=== PATIENT | female | born 1995 | race African-American/Black ===

== ENCOUNTER 2020-06-05 07:39 | Inpatient (IN) ==
[2020-06-05] MEDS ORDERED: OXYTOCIN 30 UNITS/500 ML BAG IV PRN ×2 (07:45)
--- NOTE | 2020-06-05 08:06 | History & Physical Report ---
Date of Service June 05, 2020 Assessment & Plan (1) Encounter for induction of labor: Induction of labor - benign course, reassuring T - [facility] peds aware of ECHO finding 02/2020 "aneurysm foramen ovale" cardiac abnormality, ok to deliver plan: induction of labor via Pitocin. epidural. - needs Pap at visit Admission and Anticipated Discharge Date Admission Date: June 05, 2020 History of Present Illness Primary Care Provider: NO PCP dr. ricardo rocha hasn't seen yet dr ignacio is her pcp. Darlyn Monte is a 24 y/o healthy female currently at 41 WGA with an LIGIA 05/28/20 as determined by (ultrasound) who is here for (induction). Her was complicated by cardiac abnormality on ECHO ("aneurysm of foramen ovale"), but no other problems. She had bloody show yesterday. Feels baby kicking regularly. + contractions; + movement; - fluid loss; +bloody show. 04/26/20 mucous plug fell out, was evaluated, did not enter labor at the time. Has had regular appointments with OB. 01/19 intermittent cramping pain butt and groin started yesterday, still has today. Denies painful contractions prior to yesterday. +urinary frequency. No dysuria or urgency. No back/kidney pain. Denies headache dizziness, vision changes, or nausea. No cough, chest pain, calf tenderness. Last bowel movement this AM, +diarrhea. Denies recent illness, infections. Denies hx of STIs. No hx of HTN or diabetes. Failed 1hr GTT (134) at 28 weeks, but passed subsequent 2 hr GTT on 03/21/20. Neg covid test 05/31/20. Has not traveled out of state last month. No sick contact. Per patient, minor fall x1 a few weeks ago, was cleared by OB. Baby name: Alonzo (middle name Lino). Patient would like circumcision for baby. Plans to breastfeed and has pump. Labs: (11/24/19) Blood type: O+ Antibody screen: negative H.1 (today) Hct: 37.6 (today) WBC: 13.22H (today) Plt: 279 (today) Rubella: immune RPR: Gonorrhea: negative Chlamydia: negative HIV: nonreactive HbSAg: negative GBS: negative 03/08/20 GTT (1hr): 134H 03/21/20 GTT (2hr): 118 03/16/20 UA had trace leuk esterase, >30 epithelial cells, 2+ bacteria. Other screens: negative quad screen cystic fibrosis: negative tdap UTD Allergies Allergy/AdvReac Type Severity Reaction Status Date / Time No Known Drug Allergies Allergy Unknown Verified 06/05/20 07:47 Home Medications Home Medications Medication Instructions Recorded Confirmed Type prenat.vits,joanna,qce-[id number] 1 tab PO DAILY 03/12/20 06/05/20 History Patient History Surgical History S/P wisdom tooth extraction Family History Father Crohn's disease Grandfather (Paternal) Diabetes Mother Hypertension Social History (Updated 06/05/20 @ 08:59 by Raymundo Epstein MD) Smoking Status: Former smoker Hx Alcohol Use: No Hx Substance Use: No Preferred Language: Sudanese Communication Ability: Effective Rn Travel Required: No Beliefs That Will Affect Care: None marital status: Single marital status details: FOB: Lino Gardner (23) [phone] Current Living Situation: Significant Other Current Living Situation Comment: apartment with FOB current occupational status: employed and unemployed Other Information That Helps Us Care for You: No other: Moved from [place] on 02/17/20. Feels Safe at Home: Yes Safety Concerns: Feels Safe At This Time Review of Systems Denies fever, chills Denies shortness of breath, difficulty breathing, chest pain, palpitations Denies dysuria. Denies headache or changes in vision. Denies nausea/vomiting. Denies numbness, tingling, weakness. Physical Exam Physical Exam: General: Alert, oriented. No acute distress. Cardiac: Regular rate and rhythm, no murmurs/rubs/gallops. Respiratory: Clear to auscultation bilaterally, no wheezes/rales/rhonchi. No increased work of breathing. Symmetrical chest rise. No respiratory distress. Abdomen: Gravid; + FHTs; Position: See attending exam. Pelvic: Dilation 4cm; Effacement 90%; Station -3. Posterior. Soft. EFW 7-8. Per Dr. Ignacio. Lower Extremities: No lower extremity edema or swelling. No deep calf pain. Gage's negative bilaterally. Results & Data ([facility]) Vital Signs (Past 12 Hours) Vital Signs Temp Pulse Resp BP 06/05/20 07:53 37.0 C 20 06/05/20 07:46 96 H 122/76 Laboratory Results +1 protein. 250 glucose in urine dip this AM Monitoring External Monitor External FHT and external uterine monitors used; Category I tracing; 130bmp FHT moderate variability. + accelerations. No decelerations. Contractions 2-7 minutes apart. Supervising Physician Co-Signing Physician Notes Resident Physician Supervision Note: I interviewed and examined the patient. Discussed with Dr. Epstein and agree with findings and plan as documented in the note. Any exceptions or clarifications are listed here: 24yo @ 41 10/18, IOL. Aneurysm of foramen ovale - peds review of chart, ok to deliver at [facility]. Documented By: Alexandria Ignacio, DO Resident Activity Tracking Resident Involvement: Resident Care Provided Care Provided: Adult Hospital Medicine
[2020-06-05 08:21] LABS: Hematocrit (blood only) 37.6 % (37-47); Hemoglobin 12.1 g/dL (12.0-16.0); Mean Corpuscular Hemoglobin 26.4 pg (25-34); Mean Corpuscular Volume 82.1 fL (80-100); Mean Platelet Volume 9.9 fL (7.4-10.4); Platelet Count 279 K/uL (130-400); RDW Coefficient of Variation 14.8 % (11.5-14.5); RDW Standard Deviation 43.5 fL (36.4-46.3); Red Blood Count 4.58 M/uL (4.2-5.4); White Blood Count 13.22 K/uL (4.8-10.8)
[2020-06-05 08:48] LABS: Mean Corpuscular Hgb Conc 32.2 g/dL (32-36)
[2020-06-05] MEDS: LACTATED RINGER'S 1,000 ML IV PRN ×3 (08:49→15:45)
[2020-06-05] MEDS ORDERED: ePHEDrine sulfate 50 MG/ML AMP ONE (09:25)
[2020-06-05] MEDS ORDERED: fentaNYL citrate 100 MCG/2 ML VIAL ONE (09:26)
[2020-06-05] MEDS ORDERED: fentaNYL 2MCG/ML ROPIV 1.25MG/ML 100 ML BAG EPI ONE (09:26)
[2020-06-05] MEDS ORDERED: BUPIVACAINE 0.25% 30 ML VIAL ONE ×2 (09:26→23:02)
[2020-06-05] MEDS ORDERED: NALOXONE HCL 0.4 MG/1 ML VIAL/CARP IV PRN (09:57)
[2020-06-05] MEDS ORDERED: NALOXONE HCL 1 MG in SODIUM CHLORIDE 0.9% 1000ML 1,000 ML IV PRN (09:57)
[2020-06-05] MEDS ORDERED: DiphenhydrAMINE HCL 50 MG/ML VIAL IV PRN (09:57)
[2020-06-05] MEDS ORDERED: ONDANSETRON INJ 2 MG/ML 2 ML VIAL IV PRN (09:57)
[2020-06-05] MEDS ORDERED: ePHEDrine sulfate 50 MG/ML AMP IV PRN (09:57)
[2020-06-05] MEDS ORDERED: PROMETHAZINE HCL 6.25 MG in SODIUM CHLORIDE 0.9% 50 ML IV PRN (09:57)
--- NOTE | 2020-06-05 09:57 | Anesthesiology Consultation ---
Date of Service June 05, 2020 Assessment & Plan (1) Encounter for pre-operative examination: Chart Review Chart Review: Patient NOT seen in Pre Admission Testing and Acceptable Risk for Labor Epidural Consults Requested none ASA ASA2 Proposed Anesthesia Anesthesia Type: Labor Epidural Risk / Benefits Reviewed With: PT / POA / Parent / Guardian, Accepts Plan and Informed Consent Obtained History Height/Weight Height: 5 ft 4 in Weight: 100.698 kg Allergies Allergy/AdvReac Type Severity Reaction Status Date / Time No Known Drug Allergies Allergy Unknown Verified 06/05/20 07:47 Medications Home Medications Medication Instructions Recorded Confirmed Last Taken prenat.vits,joanna,urd-kzzn-[id number] 1 tab PO DAILY 03/12/20 06/05/20 06/04/20 Active Medications Generic Name Dose Route Start Last Admin Trade Name Freq PRN Reason Stop Dose Admin Lactated Ringer's 1,000 mls @ 125 mls/hr 06/05/20 07:45 06/05/20 09:20 Lr IV 06/07/20 07:44 999 mls/hr .Q8H PRN Infusion L&D Protocol Protocol Oxytocin 30 units in 500 mls @ 3 mls/hr 06/05/20 07:45 06/05/20 09:20 Pitocin IV 06/07/20 07:44 0.18 units/hr .Q24H PRN 3 mls/hr Labor Induction/Augmentation Titration Protocol 0.18 UNITS/HR NPO Date Last Intake of Fluids: 06/05/20 Time Last Intake of Fluids: 06:00 Date Last Intake of Solids: 06/05/20 Time Last Intake of Solids: 06:00 Exercise / Class Metabolic Activity II 4-5 Yardwork/Stairs/Walk up hill Past Family History Family History Father Crohn's disease Grandfather (Paternal) Diabetes Mother Hypertension Past Surgical History Surgical History S/P wisdom tooth extraction Past Anesthesia History No Hx of Anesthesia Complications and No Family Hx of Anesthesia Complications History of PONV No Hx of PONV and No Hx of Motion Sickness Social History Smoking Status: Former smoker Hx Alcohol Use: No Hx Substance Use: No substance use type: does not use Physical Exam Vital Signs Last Vital Signs Temp 37.0 C 06/05/20 07:53 Pulse 92 H 06/05/20 09:54 Resp 20 06/05/20 07:53 BP 138/78 06/05/20 09:54 Pulse Ox 98 06/05/20 09:53 ENMT Mouth: no dentition abnormality Thyromental Distance: > or= 3.5 Finger Breadths Mallampati Class: II Neck normal visual inspection Respiratory normal respiratory effort Auscultation: lungs clear to auscultation bilaterally Cardiovascular Rate/Rhythm: regular rate and regular rhythm Psychiatric Orientation: alert Testing Laboratory Results 06/05/20 08:09 06/05/20 08:53 POC Glucose 85
--- NOTE | 2020-06-05 12:38 | Labor Progress Brief Note ---
Date of Service June 05, 2020 Subjective Comfortable with epidural. FHT Cat 1 [place] Q 2 SVE 5/100/-2, bulging membranes AROM clear fluid. Continue pitocin. Assessment & Plan Admission and Anticipated Discharge Date Admission Date: June 05, 2020 Results & Data ([facility]) Vital Signs (Past 12 Hours) Vital Signs Temp Pulse Resp BP Pulse Ox 06/05/20 12:35 66 138/76 06/05/20 12:33 81 98 06/05/20 12:28 76 97 06/05/20 12:23 83 97 06/05/20 12:20 73 115/72 06/05/20 12:18 86 97 06/05/20 12:13 84 96 06/05/20 12:08 91 H 98 06/05/20 12:04 86 118/75 06/05/20 12:03 87 98 06/05/20 11:58 83 95 06/05/20 11:53 96 H 96 06/05/20 11:49 99 H 126/74 06/05/20 11:48 73 96 06/05/20 11:43 71 96 06/05/20 11:38 81 96 06/05/20 11:34 80 126/70 06/05/20 11:33 74 96 06/05/20 11:28 80 96 06/05/20 11:23 74 96 06/05/20 11:20 77 129/71 06/05/20 11:18 92 H 97 06/05/20 11:13 81 95 06/05/20 11:09 100 H 94 06/05/20 11:08 102 H 94 06/05/20 11:03 104 H 109/67 97 06/05/20 10:58 95 H 98 06/05/20 10:53 98 H 96 06/05/20 10:49 90 102/57 L 06/05/20 10:48 88 97 06/05/20 10:43 103 H 98 06/05/20 10:38 85 97 06/05/20 10:34 79 142/63 H 06/05/20 10:33 86 98 06/05/20 10:28 98 H 97 06/05/20 10:23 88 99 06/05/20 10:18 78 97 06/05/20 10:17 85 118/69 06/05/20 10:13 81 98 06/05/20 10:12 81 138/92 06/05/20 10:08 85 24 138/75 98 06/05/20 10:05 81 24 130/59 L 06/05/20 10:03 74 133/67 98 06/05/20 10:00 80 133/70 06/05/20 09:58 76 20 133/69 97 06/05/20 09:56 78 139/73 06/05/20 09:54 37.1 C 92 H 18 138/78 06/05/20 09:53 82 98 06/05/20 09:52 76 138/82 06/05/20 09:51 71 146/68 H 06/05/20 09:49 89 140/73 97 06/05/20 09:43 95 H 97 06/05/20 09:42 94 H 94 06/05/20 09:38 108 H 98 06/05/20 09:34 87 111/68 06/05/20 09:33 98 H 99 06/05/20 08:55 93 H 111/73 06/05/20 07:53 37.0 C 20 06/05/20 07:46 96 H 122/76 Coding Level of Care Code None
[2020-06-05] MEDS: fentaNYL 2MCG/ML ROPIV 1.25MG/ML 100 ML BAG EPI PRN ×2 (16:52→22:40)
--- NOTE | 2020-06-05 19:22 | Labor Progress Brief Note ---
Date of Service June 05, 2020 Subjective Comfortable with epidural. FHT Cat 1 [place] Q2, however not adequate [place] units with IUPC. Cervix unchanged, still 5-6cm, 100% effaced. Will give patient pitocin holiday, then restart again in 2 hours, in the hopes of progressing into active labor. Discussed this with patient, she is agreeable. Assessment & Plan Admission and Anticipated Discharge Date Admission Date: June 05, 2020 Results & Data ([facility]) Vital Signs (Past 12 Hours) Vital Signs Temp Pulse Resp BP Pulse Ox 06/05/20 19:18 74 97 06/05/20 19:13 95 H 97 06/05/20 19:08 84 125/67 96 06/05/20 19:03 67 99 06/05/20 18:58 72 99 06/05/20 18:53 69 98 06/05/20 18:48 66 98 06/05/20 18:43 74 99 06/05/20 18:38 75 115/74 98 06/05/20 18:33 67 99 06/05/20 18:28 78 98 06/05/20 18:23 76 98 06/05/20 18:18 72 98 06/05/20 18:13 67 98 06/05/20 18:09 66 122/72 06/05/20 18:08 66 97 06/05/20 18:03 63 98 06/05/20 17:58 78 98 06/05/20 17:53 37.0 C 68 22 98 06/05/20 17:48 67 98 06/05/20 17:43 69 99 06/05/20 17:39 68 121/68 06/05/20 17:38 73 98 06/05/20 17:33 69 99 06/05/20 17:28 74 98 06/05/20 17:23 73 98 06/05/20 17:18 72 98 06/05/20 17:13 70 99 06/05/20 17:08 70 98 06/05/20 17:03 68 98 06/05/20 16:58 75 98 06/05/20 16:53 71 98 06/05/20 16:48 72 98 06/05/20 16:43 74 98 06/05/20 16:38 74 125/72 98 06/05/20 16:33 72 98 06/05/20 16:28 66 98 08/25/20 16:23 65 98 06/05/20 16:18 68 99 06/05/20 16:13 85 98 06/05/20 16:09 73 131/79 06/05/20 16:08 65 98 06/05/20 16:03 69 98 06/05/20 15:58 69 98 06/05/20 15:53 65 99 06/05/20 15:48 67 99 06/05/20 15:43 73 98 06/05/20 15:38 72 99 06/05/20 15:36 36.9 C 62 24 129/69 06/05/20 15:34 177/121 H 06/05/20 15:33 71 98 06/05/20 15:28 78 99 06/05/20 15:23 74 99 06/05/20 15:19 71 127/80 06/05/20 15:18 72 99 06/05/20 15:13 67 98 06/05/20 15:08 79 98 06/05/20 15:03 63 121/73 97 06/05/20 14:58 62 98 06/05/20 14:53 69 100 06/05/20 14:49 76 120/73 06/05/20 14:48 75 98 06/05/20 14:43 73 97 06/05/20 14:38 76 97 06/05/20 14:33 74 121/74 96 06/05/20 14:28 69 97 06/05/20 14:23 71 97 06/05/20 14:18 63 119/67 97 06/05/20 14:13 70 96 06/05/20 14:08 60 97 06/05/20 14:03 84 121/74 98 06/05/20 13:58 70 97 06/05/20 13:53 74 96 06/05/20 13:48 81 119/77 97 06/05/20 13:43 77 97 06/05/20 13:38 72 97 06/05/20 13:33 78 119/71 98 06/05/20 13:28 68 97 06/05/20 13:23 65 98 06/05/20 13:20 73 121/70 06/05/20 13:18 72 98 06/05/20 13:13 72 97 06/05/20 13:08 74 97 06/05/20 13:04 72 110/72 06/05/20 13:03 70 98 06/05/20 12:58 86 97 06/05/20 12:53 71 98 06/05/20 12:49 74 133/78 06/05/20 12:48 73 98 06/05/20 12:43 87 98 06/05/20 12:40 37.0 C 24 06/05/20 12:38 104 H 98 06/05/20 12:35 66 138/76 06/05/20 12:33 81 98 06/05/20 12:28 76 97 06/05/20 12:23 83 97 06/05/20 12:20 73 115/72 06/05/20 12:18 86 97 06/05/20 12:13 84 96 06/05/20 12:08 91 H 98 06/05/20 12:04 86 118/75 06/05/20 12:03 87 98 06/05/20 11:58 83 95 06/05/20 11:53 96 H 96 06/05/20 11:49 99 H 126/74 06/05/20 11:48 73 96 06/05/20 11:43 71 96 06/05/20 11:38 81 96 06/05/20 11:34 80 126/70 06/05/20 11:33 74 96 06/05/20 11:28 80 96 06/05/20 11:23 74 96 06/05/20 11:20 77 129/71 06/05/20 11:18 92 H 97 06/05/20 11:13 81 95 06/05/20 11:09 100 H 94 06/05/20 11:08 102 H 94 06/05/20 11:03 104 H 109/67 97 06/05/20 10:58 95 H 98 06/05/20 10:53 98 H 96 06/05/20 10:49 90 102/57 L 06/05/20 10:48 88 97 06/05/20 10:43 103 H 98 06/05/20 10:38 85 97 06/05/20 10:34 79 142/63 H 06/05/20 10:33 86 98 06/05/20 10:28 98 H 97 06/05/20 10:23 88 99 06/05/20 10:18 78 97 06/05/20 10:17 85 118/69 06/05/20 10:13 81 98 06/05/20 10:12 81 138/92 06/05/20 10:08 85 24 138/75 98 06/05/20 10:05 81 24 130/59 L 06/05/20 10:03 74 133/67 98 06/05/20 10:00 80 133/70 06/05/20 09:58 76 20 133/69 97 06/05/20 09:56 78 139/73 06/05/20 09:54 37.1 C 92 H 18 138/78 06/05/20 09:53 82 98 06/05/20 09:52 76 138/82 06/05/20 09:51 71 146/68 H 06/05/20 09:49 89 140/73 97 06/05/20 09:43 95 H 97 06/05/20 09:42 94 H 94 06/05/20 09:38 108 H 98 06/05/20 09:34 87 111/68 06/05/20 09:33 98 H 99 06/05/20 08:55 93 H 111/73 06/05/20 07:53 37.0 C 20 06/05/20 07:46 96 H 122/76 Coding Level of Care Code None
--- NOTE | 2020-06-05 23:44 | Labor Progress Brief Note ---
Date of Service June 05, 2020 Subjective Feeling more pressure with ctx. SVE 7/100/0 to +1, FHT Cat 1 [place] Q 2, MVU 150 Since patient is making cervical change, will continue pitocin. Will ask anesthesia to redose epidural. Assessment & Plan Admission and Anticipated Discharge Date Admission Date: June 05, 2020 Results & Data ([facility]) Vital Signs (Past 12 Hours) Vital Signs Temp Pulse Resp BP Pulse Ox 06/05/20 23:38 78 98 06/05/20 23:33 77 124/67 98 06/05/20 23:28 73 98 06/05/20 23:23 68 97 06/05/20 23:18 75 120/67 98 06/05/20 23:13 75 97 06/05/20 23:08 72 98 06/05/20 23:04 75 122/64 06/05/20 23:03 76 98 06/05/20 23:00 37.4 C 18 06/05/20 22:58 82 98 06/05/20 22:53 95 H 98 06/05/20 22:48 76 126/65 99 06/05/20 22:43 86 97 06/05/20 22:38 82 98 06/05/20 22:33 85 133/82 98 06/05/20 22:28 92 H 98 06/05/20 22:23 74 99 06/05/20 22:18 72 132/72 100 06/05/20 22:13 75 100 06/05/20 22:08 70 100 06/05/20 22:05 67 133/74 06/05/20 22:03 69 99 06/05/20 21:58 73 99 06/05/20 21:53 69 99 06/05/20 21:48 67 127/72 100 06/05/20 21:43 68 99 06/05/20 21:38 66 99 06/05/20 21:34 67 128/69 06/05/20 21:33 66 99 06/05/20 21:30 18 06/05/20 21:28 68 99 06/05/20 21:23 70 99 06/05/20 21:18 72 99 06/05/20 21:13 83 99 06/05/20 21:08 75 132/67 97 06/05/20 21:03 74 98 08/25/20 21:00 36.8 C 18 25/20 20:58 74 99 08/25/20 20:53 66 98 /25/20 20:48 82 98 25/20 20:43 73 98 25/20 20:38 72 131/76 99 25/20 20:33 79 99 25/20 20:30 20 0825/20 20:28 86 98 25/20 20:23 70 98 25/20 20:18 75 97 25/20 20:13 68 97 08/25/20 20:08 66 123/68 98 25/20 20:03 71 97 /25/20 19:58 72 97 25/20 19:53 82 98 25/20 19:48 72 97 25/20 19:43 69 97 25/20 19:38 68 122/66 97 25/20 19:33 74 98 25/20 19:28 62 98 25/20 19:23 70 97 25/20 19:18 74 97 25/20 19:13 95 H 97 25/20 19:08 84 125/67 96 25/20 19:03 67 99 25/20 19:00 36.7 C 18 20 18:58 72 99 25/20 18:53 69 98 25/20 18:48 66 98 25/20 18:43 74 99 25/20 18:38 75 115/74 98 25/20 18:33 67 99 25/20 18:28 78 98 25/20 18:23 76 98 25/20 18:18 72 98 /25/20 18:13 67 98 /25/20 18:09 66 122/72 0825/20 18:08 66 97 25/20 18:03 63 98 /25/20 17:58 78 98 /25/20 17:53 37.0 C 68 22 98 25/20 17:48 67 98 /25/20 17:43 69 99 08/25/20 17:39 68 121/68 0825/20 17:38 73 98 /25/20 17:33 69 99 /25/20 17:28 74 98 08/25/20 17:23 73 98 06/05/20 17:18 72 98 06/05/20 17:13 70 99 06/05/20 17:08 70 98 06/05/20 17:03 68 98 06/05/20 16:58 75 98 06/05/20 16:53 71 98 06/05/20 16:48 72 98 06/05/20 16:43 74 98 06/05/20 16:38 74 125/72 98 06/05/20 16:33 72 98 06/05/20 16:28 66 98 06/05/20 16:23 65 98 06/05/20 16:18 68 99 06/05/20 16:13 85 98 06/05/20 16:09 73 131/79 06/05/20 16:08 65 98 06/05/20 16:03 69 98 06/05/20 15:58 69 98 06/05/20 15:53 65 99 06/05/20 15:48 67 99 06/05/20 15:43 73 98 06/05/20 15:38 72 99 06/05/20 15:36 36.9 C 62 24 129/69 06/05/20 15:34 177/121 H 06/05/20 15:33 71 98 06/05/20 15:28 78 99 06/05/20 15:23 74 99 06/05/20 15:19 71 127/80 06/05/20 15:18 72 99 06/05/20 15:13 67 98 06/05/20 15:08 79 98 06/05/20 15:03 63 121/73 97 06/05/20 14:58 62 98 06/05/20 14:53 69 100 06/05/20 14:49 76 120/73 06/05/20 14:48 75 98 06/05/20 14:43 73 97 06/05/20 14:38 76 97 06/05/20 14:33 74 121/74 96 06/05/20 14:28 69 97 06/05/20 14:23 71 97 06/05/20 14:18 63 119/67 97 06/05/20 14:13 70 96 06/05/20 14:08 60 97 06/05/20 14:03 84 121/74 98 06/05/20 13:58 70 97 06/05/20 13:53 74 96 06/05/20 13:48 81 119/77 97 06/05/20 13:43 77 97 06/05/20 13:38 72 97 06/05/20 13:33 78 119/71 98 06/05/20 13:28 68 97 06/05/20 13:23 65 98 06/05/20 13:20 73 121/70 06/05/20 13:18 72 98 06/05/20 13:13 72 97 06/05/20 13:08 74 97 06/05/20 13:04 72 110/72 06/05/20 13:03 70 98 06/05/20 12:58 86 97 06/05/20 12:53 71 98 06/05/20 12:49 74 133/78 06/05/20 12:48 73 98 06/05/20 12:43 87 98 06/05/20 12:40 37.0 C 24 06/05/20 12:38 104 H 98 06/05/20 12:35 66 138/76 06/05/20 12:33 81 98 06/05/20 12:28 76 97 06/05/20 12:23 83 97 06/05/20 12:20 73 115/72 06/05/20 12:18 86 97 06/05/20 12:13 84 96 06/05/20 12:08 91 H 98 06/05/20 12:04 86 118/75 06/05/20 12:03 87 98 06/05/20 11:58 83 95 06/05/20 11:53 96 H 96 06/05/20 11:49 99 H 126/74 06/05/20 11:48 73 96 Coding Level of Care Code None
[2020-06-06] MEDS ORDERED: CITRIC ACID/SODIUM CITRATE 15 ML UDC PO ONE (02:00)
[2020-06-06] MEDS ORDERED: CEFAZOLIN 3000MG 65 ML IV ONE (02:00)
--- NOTE | 2020-06-06 02:02 | History & Physical Bridge Note ---
Date of Service June 06, 2020 History & Physical Bridge Note I have examined the patient, reviewed the History & Physical and in the interval since the performance of the History & Physical I have noted the following changes of clinical significance: Patient is comfortable with epidural. However, FHT have become Cat 3, with no response to resuscitative measures. Cervix is 7-8cm/100/0 station. Cervix has been making only minimal change, therefore I believe delivery is remote. Recommend proceed to delivery at this time, and recommend section. Reviewed informed consent, questions answered.
[2020-06-06] MEDS ORDERED: LACTATED RINGER'S 500 ML IV PRN (02:03)
[2020-06-06] MEDS ORDERED: MEPERIDINE HCL 25 MG/ML CARP/VIAL IV PRN (02:03)
[2020-06-06] MEDS ORDERED: DiphenhydrAMINE HCL 50 MG/ML VIAL IV PRN ×2 (02:03→20:04)
[2020-06-06] MEDS ORDERED: MoRPHine SULFATE 2 MG/ML CARP IV PRN (02:03)
[2020-06-06] MEDS ORDERED: PROMETHAZINE HCL 6.25 MG in SODIUM CHLORIDE 0.9% 50 ML IV PRN (02:03)
[2020-06-06] MEDS ORDERED: ONDANSETRON INJ 2 MG/ML 2 ML VIAL IV PRN ×2 (02:03→20:04)
[2020-06-06] MEDS ORDERED: ePHEDrine sulfate 50 MG/ML AMP IV PRN (02:03)
[2020-06-06] MEDS ORDERED: HYDROmorphone INJ 0.5 MG/0.5 ML SYR IV PRN (02:03)
[2020-06-06] MEDS ORDERED: NALOXONE HCL 0.08 MG in SYRINGE 1.8 ML IV PRN (02:03)
[2020-06-06] MEDS ORDERED: NALOXONE HCL 1 MG in SODIUM CHLORIDE 0.9% 1000ML 1,000 ML IV PRN (02:03)
[2020-06-06] MEDS ORDERED: MoRPHine SULFATE PF 1 MG/ML 10 ML AMP/VIAL INT SPINAL ONE (02:03)
[2020-06-06] MEDS ORDERED: NALOXONE HCL 0.4 MG/1 ML VIAL/CARP IV PRN (02:03)
[2020-06-06] MEDS ORDERED: DC INTRASPINAL MORPHINE SCH (02:15)
[2020-06-06] MEDS ORDERED: NO NARCOTICS OR SEDATIVES SCH (02:15)
[2020-06-06] MEDS ORDERED: SODIUM CHLORIDE 0.9% 1000ML 1,000 ML IV SCH (02:15)
[2020-06-06] MEDS ORDERED: MoRPHine SULFATE PF 1 MG/ML 10 ML AMP/VIAL ONE (02:46)
[2020-06-06] MEDS ORDERED: fentaNYL citrate 100 MCG/2 ML VIAL ONE (02:46)
[2020-06-06] MEDS ORDERED: KETOROLAC 30 MG/ML VIAL ONE (02:56)
[2020-06-06] MEDS ORDERED: CARBOPROST TROMETHAMINE 250 MCG/ML AMPUL ONE (02:56)
[2020-06-06] MEDS ORDERED: METHYLERGONOVINE MALEATE 0.2 MG/ML AMP ONE (02:56)
[2020-06-06] MEDS ORDERED: OXYTOCIN 10 UNITS/ML VIAL ONE (02:56)
--- NOTE | 2020-06-06 03:42 | Operative Report ---
PG Post Operative Report Pre & Post Diagnosis Operation Date: 06/06/20 01:40 Pre-Op Diagnosis: Postdates induction of labor, Category 3 Heart Tracing Post-Op Diagnosis: same I identified the patient and participated in the time-out.: Yes Procedure Operation Date: 06/06/20 01:40 Actual Procedures p Primary Low Transverse Section in LD(Bilateral) - Alexandria Ignacio DO Surgeon Alexandria Ignacio DO Branch Manager Bertrand Selby RN Estimated Blood Loss 600 Findings Consistent with Post-Op Diagnosis Viable male , Apgars 9/9, Weight 8#13. Normal appearing uterus, tubes, ovaries. Specimens placenta, cord blood, cord gas. Drains monsalve clear yellow Anesthesia Type L&D Only Epidural Exists Complications none Disposition Accompanied Patient To Recovery: Yes Disposition: L&D Indications 24yo @ 41 1/, IOL for postdates, persistent category 3 FHT. Description of Procedure The patient was seen in her labor room, where risks benefits and alternatives to surgery were reviewed. She elected to proceed with the case. She signed informed consent. Questions were answered. She was taken to the operating room, epidural was redosed. She was then prepared and draped in the usual sterile fashion in the supine position with a leftward tilt. Timeout was confirmed. She had been given Ancef 3 g. The skin incision was made with scalpel, Pfannenstiel. This was carried through to the underlying layer of fascia. This was nicked at midline, and the incision was extended bilaterally. The superior aspect of the fascial incision was grasped with Augie clamps x2, elevated off the underlying rectus abdominis muscles and dissected. The inferior aspect of the incision was dissected in a similar fashion. The rectus abdominis muscles were entered, and this was bluntly. Peritoneum was entered bluntly digitally. The bladder flap was taken down sharply. A new scalpel was used to make a low transverse uterine incision. The was delivered from a cephalic presentation, no nuchal cord. Spontaneous cry on the field. The cord was doubly clamped and cut, the baby was handed off to waiting recreation facility attendant. A cord segment was retained for cord gases. Cord blood was obtained. The placenta was delivered spontaneously intact. The uterus was exteriorized, and cleared of clots and debris. The hysterotomy was reapproximated using 0 Vicryl in a running locked stitch. A second layer of the same suture was used to imbricate the incision. Posterior uterus was evaluated and normal. Pitocin was given IV, and uterus remained atonic. Methergine was given IM by anesthesia, and hemabate was injected into the uterine muscle. The lower uterine segment was still very boggy, even after uterine massage. Excellent hemostasis, but since the uterine tone was poor, B- Scott suture was performed. This decision was made to prevent the atonic uterus from potentially causing a hemorrhage. 0-PDS was used to perform the B-Scott, with a stitch through the hysterotomy at its left side, over the fundus, then across posterior side, then over fundus again, and another stitch through hysterotomy. This was cynched down on the uterus, which significantly improved uterine tone and uterus began to wyatt. The uterus was returned to the abdomen, excellent hemostasis observed. Gutters were cleared of clots and debris. Excellent hemostasis was observed again. The fascial incision was reapproximated using 0 Vicryl in a running stitch. The subcutaneous tissue was irrigated, reapproximated with using 2-0 plain gut. The skin was reapproximated using 4-0 Vicryl in a subcuticular stitch. Steri strips and bandage applied. Instrument, sponge, needle counts were correct at the conclusion of the case. The patient tolerated the procedure well and was taken to her labor room to recover in stable condition. I attest to the content of the Intraoperative Record and any orders documented therein. Any exceptions are noted below.
[2020-06-06] MEDS ORDERED: SENNA 8.6 MG TAB PO PRN (03:47)
[2020-06-06] MEDS ORDERED: SUPERCREAM 0.870% 15 GM JAR EXT PRN (03:47)
[2020-06-06] MEDS ORDERED: BENZOCAINE 20% AER SPR 82.5 GM CAN EXT PRN (03:47)
[2020-06-06] MEDS ORDERED: MAGNESIUM HYDROXIDE SUSP 30 ML UDC PO PRN (03:47)
[2020-06-06] MEDS ORDERED: DIPHTHERIA/TETANUS/PERTUSSIS 0.5 ML SYR/VIAL IM ONE (03:47)
[2020-06-06] MEDS ORDERED: HYDROCORTISONE ACETATE 25 MG SUPP PR PRN (03:47)
--- NOTE | 2020-06-06 03:47 | Anesthesiology Progress Note ---
Date of Service June 06, 2020 Anesthesia Post Procedure Vital Signs Vital Signs: Temp Pulse Resp BP Pulse Ox 06/06/20 03:44 90 124/58 L 06/06/20 03:43 97 H 100 06/06/20 02:04 98 H 135/72 06/06/20 01:53 103 H 97 06/06/20 01:48 98 H 127/73 97 06/06/20 01:43 107 H 97 06/06/20 01:38 89 97 06/06/20 01:33 102 H 114/56 L 97 06/06/20 01:28 88 96 06/06/20 01:23 83 97 06/06/20 01:18 86 120/60 98 06/06/20 01:13 91 H 97 06/06/20 01:08 88 98 06/06/20 01:03 81 120/59 L 98 06/06/20 01:00 37.0 C 18 06/06/20 00:58 96 H 98 06/06/20 00:53 93 H 97 06/06/20 00:48 94 H 120/56 L 98 06/06/20 00:43 76 98 06/06/20 00:38 91 H 98 06/06/20 00:34 105 H 123/71 06/06/20 00:33 106 H 99 06/06/20 00:28 79 98 06/06/20 00:23 112 H 98 06/06/20 00:18 107 H 118/67 97 06/06/20 00:13 80 97 06/06/20 00:08 92 H 98 06/06/20 00:03 83 118/67 97 06/05/20 23:58 81 97 06/05/20 23:53 75 98 06/05/20 23:48 80 122/66 98 06/05/20 23:43 78 98 06/05/20 23:38 78 98 06/05/20 23:33 77 124/67 98 06/05/20 23:30 18 06/05/20 23:28 73 98 06/05/20 23:23 68 97 06/05/20 23:18 75 120/67 98 06/05/20 23:13 75 97 06/05/20 23:08 72 98 06/05/20 23:04 75 122/64 06/05/20 23:03 76 98 08/25/20 23:00 37.4 C 18 08/25/20 22:58 82 98 08/25/20 22:53 95 H 98 08/25/20 22:48 76 126/65 99 08/25/20 22:43 86 97 08/25/20 22:38 82 98 08/25/20 22:33 85 133/82 98 08/25/20 22:28 92 H 98 25/20 22:23 74 99 08/25/20 22:18 72 132/72 100 08/25/20 22:13 75 100 08/25/20 22:08 70 100 08/25/20 22:05 67 133/74 08/25/20 22:03 69 99 08/25/20 21:58 73 99 08/25/20 21:53 69 99 08/25/20 21:48 67 127/72 100 08/25/20 21:43 68 99 08/25/20 21:38 66 99 /25/20 21:34 67 128/69 0825/20 21:33 66 99 /25/20 21:30 18 /25/20 21:28 68 99 08/25/20 21:23 70 99 08/25/20 21:18 72 99 08/25/20 21:13 83 99 08/25/20 21:08 75 132/67 97 25/20 21:03 74 98 08/25/20 21:00 36.8 C 18 25/20 20:58 74 99 08/25/20 20:53 66 98 08/25/20 20:48 82 98 08/25/20 20:43 73 98 08/25/20 20:38 72 131/76 99 08/25/20 20:33 79 99 08/25/20 20:30 20 08/25/20 20:28 86 98 08/25/20 20:23 70 98 08/25/20 20:18 75 97 08/25/20 20:13 68 97 08/25/20 20:08 66 123/68 98 08/25/20 20:03 71 97 08/25/20 19:58 72 97 08/25/20 19:53 82 98 08/25/20 19:48 72 97 08/25/20 19:43 69 97 08/25/20 19:38 68 122/66 97 08/25/20 19:33 74 98 25/20 19:28 62 98 25/20 19:23 70 97 06/05/20 19:18 74 97 06/05/20 19:13 95 H 97 06/05/20 19:08 84 125/67 96 25/20 19:03 67 99 25/20 19:00 36.7 C 18 06/05/20 18:58 72 99 06/05/20 18:53 69 98 06/05/20 18:48 66 98 25/20 18:43 74 99 06/05/20 18:38 75 115/74 98 25/20 18:33 67 99 06/05/20 18:28 78 98 20 18:23 76 98 20 18:18 72 98 06/05/20 18:13 67 98 20 18:09 66 122/72 25/20 18:08 66 97 20 18:03 63 98 20 17:58 78 98 20 17:53 37.0 C 68 22 98 06/05/20 17:48 67 98 06/05/20 17:43 69 99 06/05/20 17:39 68 121/68 06/05/20 17:38 73 98 20 17:33 69 99 06/05/20 17:28 74 98 06/05/20 17:23 73 98 06/05/20 17:18 72 98 06/05/20 17:13 70 99 06/05/20 17:08 70 98 20 17:03 68 98 06/05/20 16:58 75 98 25/20 16:53 71 98 25/20 16:48 72 98 25/20 16:43 74 98 25/20 16:38 74 125/72 98 25/20 16:33 72 98 25/20 16:28 66 98 25/20 16:23 65 98 25/20 16:18 68 99 25/20 16:13 85 98 25/20 16:09 73 131/79 25/20 16:08 65 98 25/20 16:03 69 98 08/25/20 15:58 69 98 06/05/20 15:53 65 99 06/05/20 15:48 67 99 06/05/20 15:43 73 98 06/05/20 15:38 72 99 06/05/20 15:36 36.9 C 62 24 129/69 06/05/20 15:34 177/121 H 06/05/20 15:33 71 98 06/05/20 15:28 78 99 06/05/20 15:23 74 99 06/05/20 15:19 71 127/80 06/05/20 15:18 72 99 06/05/20 15:13 67 98 06/05/20 15:08 79 98 06/05/20 15:03 63 121/73 97 06/05/20 14:58 62 98 06/05/20 14:53 69 100 06/05/20 14:49 76 120/73 06/05/20 14:48 75 98 06/05/20 14:43 73 97 06/05/20 14:38 76 97 06/05/20 14:33 74 121/74 96 06/05/20 14:28 69 97 06/05/20 14:23 71 97 06/05/20 14:18 63 119/67 97 06/05/20 14:13 70 96 06/05/20 14:08 60 97 06/05/20 14:03 84 121/74 98 06/05/20 13:58 70 97 06/05/20 13:53 74 96 06/05/20 13:48 81 119/77 97 06/05/20 13:43 77 97 06/05/20 13:38 72 97 06/05/20 13:33 78 119/71 98 06/05/20 13:28 68 97 06/05/20 13:23 65 98 06/05/20 13:20 73 121/70 06/05/20 13:18 72 98 06/05/20 13:13 72 97 06/05/20 13:08 74 97 06/05/20 13:04 72 110/72 06/05/20 13:03 70 98 06/05/20 12:58 86 97 06/05/20 12:53 71 98 06/05/20 12:49 74 133/78 06/05/20 12:48 73 98 06/05/20 12:43 87 98 06/05/20 12:40 37.0 C 24 06/05/20 12:38 104 H 98 06/05/20 12:35 66 138/76 06/05/20 12:33 81 98 06/05/20 12:28 76 97 06/05/20 12:23 83 97 06/05/20 12:20 73 115/72 06/05/20 12:18 86 97 06/05/20 12:13 84 96 06/05/20 12:08 91 H 98 06/05/20 12:04 86 118/75 06/05/20 12:03 87 98 06/05/20 11:58 83 95 06/05/20 11:53 96 H 96 06/05/20 11:49 99 H 126/74 06/05/20 11:48 73 96 06/05/20 11:43 71 96 06/05/20 11:38 81 96 06/05/20 11:34 80 126/70 06/05/20 11:33 74 96 06/05/20 11:28 80 96 06/05/20 11:23 74 96 06/05/20 11:20 77 129/71 06/05/20 11:18 92 H 97 06/05/20 11:13 81 95 06/05/20 11:09 100 H 94 06/05/20 11:08 102 H 94 06/05/20 11:03 104 H 109/67 97 06/05/20 10:58 95 H 98 06/05/20 10:53 98 H 96 06/05/20 10:49 90 102/57 L 06/05/20 10:48 88 97 06/05/20 10:43 103 H 98 06/05/20 10:38 85 97 06/05/20 10:34 79 142/63 H 06/05/20 10:33 86 98 06/05/20 10:28 98 H 97 06/05/20 10:23 88 99 06/05/20 10:18 78 97 06/05/20 10:17 85 118/69 06/05/20 10:13 81 98 06/05/20 10:12 81 138/92 06/05/20 10:08 85 24 138/75 98 06/05/20 10:05 81 24 130/59 L 06/05/20 10:03 74 133/67 98 08/25/20 10:00 80 133/70 06/05/20 09:58 76 20 133/69 97 06/05/20 09:56 78 139/73 06/05/20 09:54 37.1 C 92 H 18 138/78 06/05/20 09:53 82 98 06/05/20 09:52 76 138/82 06/05/20 09:51 71 146/68 H 06/05/20 09:49 89 140/73 97 06/05/20 09:43 95 H 97 06/05/20 09:42 94 H 94 06/05/20 09:38 108 H 98 06/05/20 09:34 87 111/68 06/05/20 09:33 98 H 99 06/05/20 08:55 93 H 111/73 06/05/20 07:53 37.0 C 20 06/05/20 07:46 96 H 122/76 Pain Intensity Lower Abdomen: Pain Intensity: 0 Transfer of Care Handoff Completed per policy Notes Mental Status: alert / awake / arousable Nausea / Vomiting: adequately controlled Pain: adequately controlled Airway Patency, RR, SpO2: stable & adequate BP & HR: stable & adequate Hydration State: stable & adequate Neuraxial Anesthesia: was administered and sensory block is resolving Anesthetic Complications: no major complications apparent
--- NOTE | 2020-06-06 03:48 | Anesthesia Procedure Note ---
Date of Service June 06, 2020 Anesthesia Post Epidural Note Vital Signs Vital Signs: Temp Pulse Resp BP Pulse Ox 37.0 C 90 18 124/58 L 100 06/06/20 01:00 06/06/20 03:44 06/06/20 01:00 06/06/20 03:44 06/06/20 03:43 Pain Intensity Lower Abdomen: Pain Intensity: 0 Notes Mental Status: alert / awake / arousable Nausea / Vomiting: adequately controlled Pain: adequately controlled Airway Patency, RR, SpO2: stable & adequate BP & HR: stable & adequate Hydration State: stable & adequate Neuraxial Anesthesia: was administered and sensory block is resolving Anesthetic Complications: no major complications apparent and Pt Satisfied with anesthetic care Epidural: Removed without complications and With tip intact
[2020-06-06 03:54] LABS: Base Excess Cord Arterial Bld -2.1 mEq/L (-9-1.8); Base Excess Cord Venous Blood -1.8 mEq/L (-7.7-1.9); CO2 Cord Arterial Blood 46 mmHg (39.1-73.5); Cord Venous Blood HCO3 23 mmol/L (18.4-26.8); Cord Venous Blood PCO2 41 mmHg (30.4-57.2); Cord Venous Blood PO2 24 mmHg (14.1-43.3); Cord Venous Blood pH 7.37 (7.20-7.44); HCO3 Cord Arterial Blood 24 mmol/L (19.7-28.5); PO2 Cord Arterial Blood 21 mmHg (4.1-31.7); pH Cord Arterial Blood 7.34 (7.1-7.38)
[2020-06-06 03:55] LABS: O2 Saturation Cord Venous Bld < 60.0 % (<68); Oxygen Sat Cord Arterial Blood < 60.0 % (<60)
[2020-06-06] MEDS: OXYTOCIN 30 UNITS in LACTATED RINGER'S 1,000 ML IV SCH ×2 (04:40→14:30)
[2020-06-06] MEDS: PRENATAL VITAMIN 1 TAB PO SCH (08:45)
[2020-06-06] MEDS: SIMETHICONE 80 MG CHEW PO SCH ×4 (08:45→21:11)
[2020-06-06] MEDS: DOCUSATE SODIUM 100 MG CAP PO SCH ×2 (08:45→21:11)
[2020-06-06] MEDS: FERROUS SULFATE 325 MG TAB PO SCH (08:45)
[2020-06-06] MEDS: KETOROLAC 30 MG/ML VIAL IV PRN ×2 (11:36→19:18)
[2020-06-06] MEDS ORDERED: LACTATED RINGER'S 500 ML IV ONE (14:52)
[2020-06-06] MEDS ORDERED: LACTATED RINGER'S 1,000 ML IV SCH (20:00)
[2020-06-06] MEDS ORDERED: PROMETHAZINE HCL 25 MG in SODIUM CHLORIDE 0.9% 50 ML IV PRN (20:04)
[2020-06-06] MEDS ORDERED: KETOROLAC 30 MG/ML VIAL IV PRN (20:04)
[2020-06-06] MEDS: OXYCODONE/ACETAMINOPHEN 5mg/325mg TAB PO PRN (23:39)
[2020-06-06] MEDS: IBUPROFEN 600 MG TAB PO PRN (23:40)
[2020-06-07] MEDS: OXYCODONE/ACETAMINOPHEN 5mg/325mg TAB PO PRN ×5 (05:32→21:18)
[2020-06-07] MEDS: IBUPROFEN 600 MG TAB PO PRN ×5 (05:33→21:17)
--- NOTE | 2020-06-07 06:29 | Obstetrical Progress Note ---
Date of Service <Raymundo Epstein MD - Last Filed: 06/07/20 07:01> June 07, 2020 Assessment & Plan <Raymundo Epstein MD - Last Filed: 06/07/20 07:01> (1) state: POD1 primary LTCS pending cbc vitals reviewed pain control inadequate, add toradol nursing counseling Subjective <Raymundo Epstein MD - Last Filed: 06/07/20 07:01> 8/10 constant aching pain. Lochia moderate. voiding, eating. NO BM. Mild flatus. Not latching. Ambulating. No calf pain. No f/c, n/v, cp/sob, constip/diarr. Physical Exam <Raymundo Epstein MD - Last Filed: 06/07/20 07:01> General: Alert, oriented. No acute distress. Cardiac: Regular rate and rhythm, no murmurs/rubs/gallops. Respiratory: Clear to auscultation anterior and posteriorly, no wheezes/rales/rhonchi. No increased work of breathing. Symmetrical chest rise. No respiratory distress. Abdomen: LTCS scar bandaged, appears clean. Deffered exam of abd due to patient discomfort. Lower Extremities: 1+ LE edema. No deep calf pain. Gage's negative bilaterally. Results & Data ([facility]) <Raymundo Epstein MD - Last Filed: 06/07/20 07:01> Vital Signs (Past 12 Hours) Vital Signs Temp Pulse Resp BP Pulse Ox 06/06/20 23:35 36.4 C L 68 16 128/64 97 06/06/20 20:40 37.0 C 80 18 115/72 98 06/06/20 19:40 20 97 <Sunshine Allen MD, FACOG - Last Filed: 06/07/20 07:32> Co-Signing Physician Notes Resident Physician Supervision Note: I interviewed and examined the patient. Discussed with Dr. Epstein and agree with findings and plan as documented in the note. Any exceptions or clarifications are listed here: Patient is pod#1+. She is not doing well with pain management. Patient unfortunately does not have a good pain management skills. Vitals are stable. +flatus, voiding. Incision c/d/i. Very tender to palpation of the uterus that is firm at u. This tenderness c/w patient poor pain tolerance and not infection. Will give some IV toradol this am to get more on top of it and encourage ambulation. Tolerated diet without n/v. Documented By: Sunshine Allen MD, FACOG
[2020-06-07 06:58] LABS: Basophils # (auto) 0.02 K/uL (0-0.2); Basophils % (auto) 0.1 %; Eosinophils # (auto) 0.06 K/uL (0-0.5); Eosinophils % (auto) 0.4 %; Hematocrit (blood only) 28.8 % (37-47); Hemoglobin 9.3 g/dL (12.0-16.0); Immature Granulocytes # (auto) 0.04 K/uL (0.00-0.02); Immature Granulocytes % (auto) 0.3 %; Lymphocytes # (auto) 3.03 K/uL (1.2-3.4); Lymphocytes % (auto) 20.6 %; Mean Corpuscular Hemoglobin 26.9 pg (25-34); Mean Corpuscular Hgb Conc 32.3 g/dL (32-36); Mean Corpuscular Volume 83.2 fL (80-100); Mean Platelet Volume 9.9 fL (7.4-10.4); Monocytes # (auto) 1.29 K/uL (0.11-0.59); Monocytes % (auto) 8.8 %; Neutrophils # (auto) 10.24 K/uL (1.4-6.5); Neutrophils % (auto) 69.8 %; Platelet Count 218 K/uL (130-400); RDW Coefficient of Variation 15.2 % (11.5-14.5); RDW Standard Deviation 46.4 fL (36.4-46.3); Red Blood Count 3.46 M/uL (4.2-5.4); White Blood Count 14.68 K/uL (4.8-10.8)
[2020-06-07] MEDS: FERROUS SULFATE 325 MG TAB PO SCH (09:21)
[2020-06-07] MEDS: PRENATAL VITAMIN 1 TAB PO SCH (09:21)
[2020-06-07] MEDS: SIMETHICONE 80 MG CHEW PO SCH ×4 (09:21→21:06)
[2020-06-07] MEDS: DOCUSATE SODIUM 100 MG CAP PO SCH ×2 (09:21→21:06)
[2020-06-07] MEDS ORDERED: bisacodyL 5 MG TABEC PO SCH (20:00)
[2020-06-08] MEDS: IBUPROFEN 600 MG TAB PO PRN ×3 (02:33→11:49)
[2020-06-08] MEDS: OXYCODONE/ACETAMINOPHEN 5mg/325mg TAB PO PRN ×3 (02:33→11:48)
[2020-06-08] MEDS ORDERED: bisacodyL 10 MG SUPP PR PRN (03:47)
--- NOTE | 2020-06-08 06:04 | Obstetrical Progress Note ---
Date of Service June 08, 2020 Assessment & Plan (1) state: Darlyn Monte is a 24 y/o s/p PLTCS POD2 primary LTCS pending cbc vitals reviewed pain control inadequate, add toradol nursing counseling echo abnormality dipso likely tomorrow. Subjective 4/10 pain. tolerable. no bm. + flatus. -f/c, n/v, cp/sob, garcia, vision changes, calf tenderness eating small appetite. gassy +amb on similac temporarily Review of Systems Denies fever, chills, sweats Denies shortness of breath, difficulty breathing, chest pain, palpitations, chest pressure. Denies breast pain. Denies dysuria. Denies headache or changes in vision. Denies nausea/vomiting. Denies numbness, tingling, weakness. Physical Exam General: Alert, oriented. No acute distress. Cardiac: Regular rate and rhythm, no murmurs/rubs/gallops. Respiratory: Clear to auscultation anterior and posteriorly, no wheezes/rales/rhonchi. No increased work of breathing. Symmetrical chest rise. No respiratory distress. Abdomen: LTCS scar w/ steri strip/tape, appears clean. no drainage. Lower Extremities: trace edema. No deep calf pain. Gage's negative bilaterally. Results & Data ([facility]) Vital Signs (Past 12 Hours) Vital Signs Temp Pulse Resp BP Pulse Ox 06/07/20 23:45 36.4 C L 74 16 112/72 97 06/07/20 19:20 36.8 C 77 18 120/79 96
--- NOTE | 2020-06-08 06:38 | Obstetrical Progress Note ---
Date of Service June 08, 2020 Assessment & Plan (1) state: POD # 2 doing well. Encourage ambulation. Subjective Ambulation: ambulating normally Voiding: no voiding problems Diet Tolerance:: regular diet Lochia:: Small Feeding Type:: breast feeding Physical Exam Constitutional WD/WN, vitals as above Gastrointestinal (Abdomen) normal bowel sounds, soft, nontender, no hepatosplenomegaly (incision cdi) Results & Data ([facility]) Vital Signs (Past 12 Hours) Vital Signs Temp Pulse Resp BP Pulse Ox 06/07/20 23:45 97.5 F L 74 16 112/72 97 06/07/20 19:20 98.2 F 77 18 120/79 96
[2020-06-08 06:45] LABS: Hemoglobin 9.2 g/dL (12.0-16.0)
[2020-06-08] MEDS: SIMETHICONE 80 MG CHEW PO SCH ×2 (07:48→12:30)
[2020-06-08] MEDS: PRENATAL VITAMIN 1 TAB PO SCH (07:48)
[2020-06-08] MEDS: FERROUS SULFATE 325 MG TAB PO SCH (07:48)
[2020-06-08] MEDS: DOCUSATE SODIUM 100 MG CAP PO SCH (07:48)
--- NOTE | 2020-06-13 08:36 | Discharge Summary ---
Date of Service June 13, 2020 Admission HPI Per Admitting Provider Darlyn Lulú Monte is a 24 y/o healthy female currently at 42 WGA with an LIGIA 05/28/20 as determined by (ultrasound) who is here for (induction). Her was complicated by cardiac abnormality on ECHO ("aneurysm of foramen ovale"), but no other problems. She had bloody show yesterday. Feels baby kicking regularly. + contractions; + movement; - fluid loss; +bloody show. 04/26/20 mucous plug fell out, was evaluated, did not enter labor at the time. Has had regular appointments with OB. 01/19 intermittent cramping pain butt and groin started yesterday, still has today. Denies painful contractions prior to yesterday. +urinary frequency. No dysuria or urgency. No back/kidney pain. Denies headache dizziness, vision changes, or nausea. No cough, chest pain, calf tenderness. Last bowel movement this AM, +diarrhea. Denies recent illness, infections. Denies hx of STIs. No hx of HTN or diabetes. Failed 1hr GTT (134) at 28 weeks, but passed subsequent 2 hr GTT on 03/21/20. Neg covid test 05/31/20. Has not traveled out of state last month. No sick contact. Per patient, minor fall x1 a few weeks ago, was cleared by OB. Baby name: Alonzo (middle name Lino). Patient would like circumcision for baby. Plans to breastfeed and has pump. Labs: (11/24/19) Blood type: O+ Antibody screen: negative H.1 (today) Hct: 37.6 (today) WBC: 13.22H (today) Plt: 279 (today) Rubella: immune RPR: Gonorrhea: negative Chlamydia: negative HIV: nonreactive HbSAg: negative GBS: negative 03/08/20 GTT (1hr): 134H 03/21/20 GTT (2hr): 118 03/16/20 UA had trace leuk esterase, >30 epithelial cells, 2+ bacteria. Other screens: negative quad screen cystic fibrosis: negative tdap UTD Discharge Data Consultations 06/05/20 07:45 Consult Anesthesiology Stat Procedures Performed Operation Date: 06/06/20 01:40 Actual Procedures p Section in LD(Bilateral) - [facility] Course (1) Supervision of normal first : Induction of labor. section, please see op note. Routine postop course, DC home POD2. Coding Level of Care Code None Diagnoses Supervision of normal first Z34.00
== END 2020-06-08 15:40 | disposition home or self-care (01) | DRG 788 ==
LOC: 4S1 07:39 → 4S2 06-06 06:34